=== PATIENT | female | born 1990 | race Caucasian/White ===

== ENCOUNTER → 2020-07-03 | Outpatient (CLI) | payer BC ==
--- NOTE | 2020-07-03 08:21 | CT ---
EXAMINATION TYPE: CT brain wo con DATE OF EXAM: 07/03/2020 COMPARISON: None. HISTORY: Headaches CT DLP: 1121 mGycm. Automated Exposure Control for Dose Reduction was Utilized. TECHNIQUE: CT scan of the head is performed without contrast. FINDINGS: There is no acute intracranial hemorrhage, mass effect, or midline shift identified. The ventricles and sulci are within normal limits in size. Carbajal-white matter differentiation is maintain ed. The globes are intact and the visualized sinuses are clear. IMPRESSION: Unremarkable study.
== END | disposition home or self-care (01) ==
LOC: RADCTMAIN 07:06
PROVIDERS: ATTEND Family Medicine
DX: R51.9 Headache, unspecified (principal)
CPT/HCPCS: 70450

== ENCOUNTER → 2023-03-27 | Outpatient (CLI) | payer BC ==
--- NOTE | 2023-03-27 10:37 | XR ---
EXAMINATION TYPE: XR lumbar spine 2 or 3V DATE OF EXAM: 03/27/2023 CLINICAL HISTORY: Lumbago with sciatica TECHNIQUE: Three views of the lumbar spine are submitted. COMPARISON: None. FINDINGS: There are 5 lumbar type vertebral bodies identified. The lumbar spine shows satisfactory alignment w ithout evidence of acute fracture or dislocation. Vertebral body heights are within normal limits. Disc spaces are within normal limits. The overlying soft tissue appears unremarkable. IMPRESSION: No acute fracture.
== END | disposition home or self-care (01) ==
LOC: RADXRMAIN 10:13
PROVIDERS: ATTEND Family Medicine
DX: M54.41 Lumbago with sciatica, right side (principal)
CPT/HCPCS: 72100

== ENCOUNTER → 2024-09-23 | Outpatient (CLI) | payer BC ==
[2024-09-23 15:25] LABS: Ceruloplasmin 23.9 mg/dL (20.0-60.0)
[2024-09-23 15:30] LABS: % Iron Saturation 24.18 (12.00-45.00); ALT 73 U/L (8-44); AST 45 U/L (13-35); Albumin 4.4 g/dL (3.8-4.9); Albumin/Globulin Ratio 1.91 Ratio (1.60-3.17); Alkaline Phosphatase 70 U/L (41-126); Bilirubin, Conjugated <0.20 mg/dL (0.20-0.40); Bilirubin,Unconjugated >0 mg/dL (0.20-1.00); GGT 49 U/L (0-38); Globulin 2.3 g/dL (1.6-3.3); Iron 88 UG/DL (50-170); Total Bilirubin 0.2 mg/dL (0.3-1.2); Total Iron Binding Capacity 364 UG/DL (228-460); Total Protein 6.7 g/dL (6.2-8.2)
[2024-09-23 15:31] LABS: Ferritin 49.7 ng/mL (10.0-291.0)
[2024-09-24 11:06] LABS: Alpha 1 Anti-Trypsin 137 mg/dL (90 - 200)
== END | disposition home or self-care (01) ==
LOC: LABWHC1 09:41
PROVIDERS: ATTEND Family Medicine
DX: R94.5 Abnormal results of liver function studies (principal)
CPT/HCPCS: 36415; 80076; 82103; 82104; 82390; 82533; 82728; 82977; 83540; 83550; 84255; 86038

== ENCOUNTER → 2024-09-23 | Outpatient (CLI) | payer BC ==
--- NOTE | 2024-09-23 09:47 | US ---
EXAMINATION TYPE: US abdomen complete DATE OF EXAM: 09/23/2024 COMPARISON: NONE CLINICAL INDICATION: Female, 34 years old with history of R94.5 ABN RESULTS OF LIVER FUNCTION STUDIES ; pt states she has known fatty liver but has a healthy diet & does not drink alcohol TECHNIQUE: Grayscale and color Doppler imaging of the abdomen was performed. FINDINGS: EXAM MEASUREMENTS: Liver Length: 14.6 cm Gallbladder Wall: 0.2 cm CBD: 0.2 cm, color Doppler imaging was utilized to isolate the common bile duct for measurement. Spleen: 9.9 cm Right Kidney: 12.0x4.5x5.0 cm Left Kidney: 10.9x5.1x5.4 cm [employer] NOTES: slightly limited exam due to overlying bowel Pancreas: Tail obscured by overlying bowel gas Liver: Increased attenuation, decreased visualization of vessels suggestive of fatty infiltrate Gallbladder: wnl Evidence for sonographic Rincon's sign: No CBD: wnl Spleen: wnl Right Kidney: ?calcification seen medially w/o posterior shadowing ? hyperechoic area seen(mid):0.4cm Left Kidney: No hydronephrosis, calculi or masses seen Upper IVC: wnl Abd Aorta: wnl The visualized portions of the pancreas unremarkable. The liver demonstrates slightly increased echog enicity without focal lesion. Noncirrhotic morphology. Gallbladder demonstrates no wall thickening, c alculi, or surrounding fluid. Negative sonographic Rincon's sign. Common bile duct is within normal l imits. Spleen is unremarkable. No hydronephrosis. No shadowing calculi identified. No left renal mass . There is an echogenic nonshadowing 0.4 cm focus within the right mid kidney. The visualized portion s of the upper IVC and abdominal aorta within normal limits. IMPRESSION: 1. No ultrasound evidence for acute process. 2. Mild hepatic steatosis suggested. 3. Echogenic 0.4 cm focus within the left mid kidney without shadowing. Findings may represent an ang iomyolipoma versus nonshadowing calculus. This can be further evaluated with CT abdomen as clinically indicated. [facility], , 09/23/2024 9:44 AM
== END | disposition home or self-care (01) ==
LOC: RADUSWWP 09:06
PROVIDERS: ATTEND Family Medicine
DX: K76.0 Fatty (change of) liver, not elsewhere classified (principal); R94.5 Abnormal results of liver function studies
CPT/HCPCS: 76700